=== PATIENT | female | born 1995 | race American Indian/Alaskan Native ===

== ENCOUNTER 2017-03-30 17:42 | Emergency (ER) | payer OTHER ==
[2017-03-30 18:12] VITALS: BP 125/85; PULSE 92; RESP 18; TEMP 98.8; O2SAT 95
--- NOTE | 2017-03-30 18:13 | EDPHY ---
H & P Time Seen by Provider: 03/30/17 18:06 HPI/ROS: CHIEF COMPLAINT: Left hand pain HISTORY OF PRESENT ILLNESS: 21-year-old [id number] female works at a [employer] complaining of atraumatic left hand pain for the past 24 hours. Pain is reproducible with palpation range of motion. No erythema. No fever no chills. No flu-like symptoms. No history of STD. No urethritis or urinary symptoms. PHYSICAL EXAM (Prior to examination, patient consented to physical exam, hands were washed and my usual and customary physical exam procedures followed) 1) GENERAL: Well-developed, well-nourished, alert and oriented. Appears to be in no acute distress. 2) HEAD: Normocephalic 3) HEENT: Pupils equal, round, reactive to light bilaterally. 4) LUNGS: Breathing comfortably. 5) MUSCULOSKELETAL: Soft compartments. Normal coloration. Reproducible pain with range of motion of the wrist and hand Tender to palpation 4th metacarpal. Positive Tinel, positive Phalen sign. Negative [place]. 6) SKIN: intact. No erythema. Normal color normal temperature. 7) VASCULAR: pulses and cap refill present are brisk 8) NEUROLOGIC: Radial, ulnar, median nerve function intact with no deficits appreciated on exam DIFFERENTIAL DIAGNOSIS: in no particular order including but not limited to fracture, sprain, compartment syndrome, septic arthritis, deep space infection, carpal tunnel syndrome, overuse injury Procedure: Splint A Velcro volar splint was applied by ER biodiesel process control technician. After application of the splint I returned and re-examined the patient. The splint was adequately immobilizing the joint and distal to the splint the patient's circulation and sensation were intact. Patient shows no signs of compartment syndrome. Was given orthopedic precautions. Smoking Status: Never smoked Allergies/Adverse Reactions: Penicillins Allergy (Verified 09/29/14 20:58) Home Medications: Medication Instructions Recorded Bcp 09/29/14 Ibuprofen [Motrin (*)] 800 mg PO Q6 #15 tab 03/30/17 MDM/Departure - MDM ED Course/Re-evaluation: I think this septic arthritis and/or deep space infection is less than likely in this patient. Discussed possibility of overuse injury, possibility of carpal tunnel syndrome. At this time I do not think that emergent hand surgery consultation for further diagnostics such as MRI or currently indicated from the emergency department. However, I did recommend follow up with Hand surgery , recommended elevation, wearing the splint, cold packs, NSAIDs and follow up with Hand surgery. Usual and customary orthopedic precautions instructions provided. She feels comfortable with this discharge plan. All questions and concerns addressed by myself. - Depart Disposition: Home, Routine, Self-Care Clinical Impression: Left hand pain Condition: Good Instructions: Hand Sprain (ED) Additional Instructions: Return to the ER immediately if you experience discoloration, have worsening pain, numbness, tingling, or any other symptoms that concern you. If you received x-rays in the emergency department today, be advised, that ligamentous , tendon, muscular, and other non-bony injury cannot be fully ruled out. Try to keep your affected extremity elevated above the level of your chest, and keep cold packs on the affected area, for the next 48 hours. Prescriptions: Ibuprofen [Motrin (*)] 800 mg PO Q6 #15 tab Referrals: Dmitry Hutchinson MD [Medical Doctor] - 5-7 days, call for appt. (Dr. Dmitry Hutchinson is a hand surgeon)
[2017-03-30] MEDS ORDERED: CEPHALEXIN 500 MG CAP PO ONE (18:24)
== END 2017-03-30 18:49 | disposition home or self-care (01) ==
DX: M79.642 Pain in left hand (principal)
CPT/HCPCS: L3908